=== PATIENT | female | born 1980 | race Asian ===

== ENCOUNTER 2018-11-18 19:57 | Emergency (ER) | payer OTHER ==
[~2018-11-18] VITALS: Ht 160 cm; Wt 90.7 kg
--- NOTE | 2018-11-18 20:37 | NUR ---
ED Nurse Note: Received report. Pt from home, AAOx4, ambulatory, c/o cough for about 3 weeks. Will assess and carry out ER MD's orders.
[2018-11-18 20:38] VITALS: BP 147/94
[2018-11-18] MEDS ORDERED: LORATADINE10 M1 PO (20:49)
[2018-11-18] MEDS ORDERED: ADULT WAL-100 MG/5 M ORAL (20:49)
--- NOTE | 2018-11-18 20:54 | NUR ---
ED Nurse Note: Pt cleared by health care Provider for discharge. DC instructions/prescription was given and explained to pt and verbalized understanding of teachings. All medical deviecs such as ID band removed. Pt is AAO x4, ambulatory and left with all personal belongings.
--- NOTE | 2018-11-18 22:02 | Emergency Room Report ---
History of Present Illness General Chief Complaint: Upper Respiratory Illness Source: Patient Present Illness HPI Patient is a 38-year-old female presented after increased cough worse at night. Patient reports having primarily nonproductive cough. She had been taking Hurd's without any improvement. Patient states cough is been present for approximate 3 weeks. She denies any fever. She had not been vomiting. She reports cough is been somewhat improved. She reports having some sore throat which had been getting better. Allergies: Coded Allergies: SULFA (SULFONAMIDE ANTIBIOTICS) (Unverified Allergy, Unknown, 11/18/18) Uncoded Allergies: SULFA (Allergy, Unknown, 11/18/18) Patient History Past Medical History: see triage record Last Menstrual Period: 10-18-2018 Reviewed Nursing Documentation: PMH: Agreed; PSxH: Agreed Nursing Documentation-PM Past Medical History: No History, Except For Review of Systems All Other Systems: negative except mentioned in HPI Physical Exam Vital Signs Date Time Temp Pulse Resp B/P (MAP) Pulse Ox O2 Delivery O2 Flow Rate FiO2 11/18/18 20:29 98.4 82 16 147/94 (111) 98 Room Air General Appearance: GCS 15, non-toxic, obese ENT: normal ENT inspection, hearing grossly normal Neck: normal inspection, full range of motion, supple Respiratory: normal inspection, lungs clear, normal breath sounds Cardiovascular #1: normal inspection Musculoskeletal: normal inspection, back normal Neurologic: normal inspection, alert, oriented x3, responsive, 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 Differential diagnosis include was not limited to bronchitis, sinusitis, allergic rhinitis among others. Patient has a benign exam and does not appear to require any further imaging or laboratory testing at this time. Patient symptoms appear to be improving over time. She does not appear to have any significant coughing or difficulty breathing while in the emergency department. Patient does not have any leg swelling or lung findings consistent with CHF. Patient was noted to have no risk factors for pulmonary embolism. Patient states that she has been having cough worse at nighttime. This appears to be related to seasonal allergies. Patient states that she has been using multiple [id number] cough medications. Patient is not currently taking antihistamines we will given prescription for Claritin. Patient appears to be stable for outpatient management and further evaluation with her primary care physician. Patient advised to return for any worsening of difficulty breathing or other concerns. Last Vital Signs Date Time Temp Pulse Resp B/P (MAP) Pulse Ox O2 Delivery O2 Flow Rate FiO2 11/18/18 20:54 Room Air 11/18/18 20:38 98.4 81 16 147/94 98 Status: improved Disposition: HOME, SELF-CARE Condition: Stable Scripts Loratadine (LORATADINE) 10 Mg Tab.rapdis 10 MG PO DAILY, #30 TAB Prov: Oc Cassidy MD 11/18/18 Guaifenesin* (ADULT WAL-TUSSIN*) 100 Mg/5 Ml Liquid 5 ML ORAL Q4H, #120 ML Prov: Oc Cassidy MD 11/18/18 Patient Instructions: Upper Respiratory Infection, Adult Oc Cassidy MD Nov 18, 2018 22:02
== END 2018-11-18 20:54 | disposition home or self-care (01) ==
LOC: EMR 20:45
DX: J06.9 Acute upper respiratory infection, unspecified (principal); R05 Cough; Z88.2 Allergy status to sulfonamides
CPT/HCPCS: 99282

== ENCOUNTER 2020-03-28 06:30 | Emergency (ER) | payer OTHER ==
[~2020-03-28] VITALS: Ht 160 cm; Wt 96.2 kg
[~2020-03-28 06:30] MED LIST: ADULT WAL-100 MG/5 M ORAL; LORATADINE10 M1 PO
--- NOTE | 2020-03-28 07:02 | Emergency Room Report ---
History of Present Illness General Chief Complaint: Flu Like Symptoms Source: Patient Present Illness HPI Disclaimer: Please note that this report is being documented using [employer] technology. This can lead to erroneous entry secondary to incorrect interpretation by the dictating instrument. HPI: 40-year-old female presents for evaluation of loss of taste and smell. Symptoms occurred yesterday. Patient went to outpatient testing for COVID-19 and results are not yet returned. Her boyfriend was having shortness of breath and fever and brought to emergency department tested positive for COVID-19. She presents this morning requesting a rapid test. She denies fever, chills, sore throat, cough, shortness of breath, chest pain, palpitation, nausea, vomiting. She reports nasal congestion but otherwise feeling well. Eating drinking baseline. No other symptoms. No history of asthma, COPD. Non-smoker. PMH: Reviewed PSH: Reviewed Allergies: Azithromycin, sulfa medications Social Hx: Non-smoker Allergies: Coded Allergies: AZITHROMYCIN (Verified Allergy, Unknown, 03/28/20) SULFA (SULFONAMIDE ANTIBIOTICS) (Unverified Allergy, Unknown, 11/18/18) Uncoded Allergies: SULFA (Allergy, Unknown, 11/18/18) COVID-19 Screening Contact w/high risk pt: No Experienced COVID-19 symptoms?: Yes COVID-19 Testing performed ESTIMATOR PRINTING: No Patient History Last Menstrual Period: 03/07/20 Now: No : 3 Para: 0 Nursing Documentation-PMH Past Medical History: No Stated History Review of Systems All Other Systems: negative except mentioned in HPI Physical Exam Vital Signs Date Time Temp Pulse Resp B/P (MAP) Pulse Ox O2 Delivery O2 Flow Rate FiO2 03/28/20 06:40 98.6 91 20 145/98 (114) 96 Room Air General: Awake and alert, no acute distress HEENT: NC/AT. EOMI. Cardiovascular: RRR. S1 and S2 normal. No murmur appreciated Resp: Normal work of breathing. No cough, wheezing or crackles appreciated Skin: Intact. No abrasions, laceration or rash over the exposed skin MSK: Normal tone and bulk. Moving all extremities. No obvious deformity. Neuro: Awake and alert. Mentating appropriately. Medical Decision Making Diagnostic Impression: Primary Impression: Exposure to COVID-19 virus Additional Impression: Anosmia ER Course 40-year-old female with close contact and exposure to COVID-19 presents for evaluation of anosmia. No other symptoms reported. Otherwise well-appearing. She presents requesting a rapid test that she was tested for COVID-19 yesterday outpatient and results are pending. She has no other complaints at this time is only requesting a rapid test. Unfortunately, however did offer patient community testing at this time has our supply of rapid COVID-19 swabs are limited. She does not currently meet our guidelines for rapid testing. I reassured the patient that her results should be ready soon and that because she is not having severe symptoms can quarantine at home. She should return if her symptoms change otherwise wait for the results of the test she had done yesterday. Patient felt somewhat reassured with that she would seek out other testing in the area. Advised to follow-up with PMD and return with new or worsening symptoms. She is stable for outpatient follow-up. Quarantine precautions discussed. Last Vital Signs Date Time Temp Pulse Resp B/P (MAP) Pulse Ox O2 Delivery O2 Flow Rate FiO2 03/28/20 06:40 98.6 91 20 145/98 (114) 96 Room Air Disposition: HOME, SELF-CARE Condition: Stable Additional Instructions: Call your primary physician as soon as possible to discuss emergency department visit. You may require reevaluation or further testing per your doctor's recommendations. Follow-up on the outpatient COVID-19 testing you had done yesterday. Limit your contact with others as much as possible over the next 14 days. Stay minimum of 6 feet away from others, do not attend large gatherings and clean and disinfect all heavily used surfaces. Follow CDC guidelines for isolation and infection prevention. If you experience any new or worsening symptoms discussed with your doctor or return to the emergency department for reevaluation. Bravo Funes MD Mar 28, 2020 07:02
[2020-03-28 07:03] VITALS: BP 145/98
== END 2020-03-28 07:03 | disposition home or self-care (01) ==
LOC: EMR 06:52
DX: Z20.828 Contact with and (suspected) exposure to other viral communicable diseases (principal); R43.0 Anosmia; Z88.1 Allergy status to other antibiotic agents; Z88.2 Allergy status to sulfonamides
CPT/HCPCS: 99281